=== PATIENT | male | born 1945 | race Caucasian/White ===

== ENCOUNTER 2016-08-13 13:45 | Emergency (ER) | payer OTHER ==
[~2016-08-13] VITALS: Ht 180.3 cm; Wt 100.0 kg
[2016-08-13 14:51] LABS: HEMATOCRIT 42.2 % (38.0-50.0); MCH 31.1 PG (29.0-34.0); MCHC 33.6 G/DL (30.0-36.0); MCV 92.3 FL (86-99); MEAN PLAT.VOLUME 10.1 uM^3 (9.0-12.4); PLATELET COUNT 251 K/uL (156-360); RBC DIS.WIDTH-CV 13.5 % (11.8-14.6); RBC DIS.WIDTH-SD 45.8 % (39-53); RED BLOOD COUNT 4.57 M/uL (4.00-5.50); WHITE BLOOD COUNT 11.6 K/uL (4.1-10.2)
[2016-08-13 15:01] LABS: CHLORIDE 105 mEq/L (99-109); POTASSIUM 3.8 mEq/L (3.7-5.4); SODIUM 142 mEq/L (136-147)
[2016-08-13 15:03] LABS: GLUCOSE 147 mg/dL (70-99)
[2016-08-13 15:04] LABS: ANION GAP 12 MEQ/L (2-14)
[2016-08-13 15:05] LABS: TOTAL BILIRUBIN 0.6 mg/dL (0.0-1.0)
[2016-08-13 15:07] LABS: ALKALINE PHOSPHATASE 84 IU/L (3-129); GFR ESTIMATE (CALCULATED) > 59 mL/min/
[2016-08-13 15:08] LABS: ADD MIUA? YES; BILIRUBIN NEGATIVE; BLOOD MODERATE; COLOR STRAW ((YELLOW)); GLUCOSE (STRIP) 150; KETONES NEGATIVE; LEUKOCYTES NEGATIVE; NITRITE NEGATIVE; PROTEIN (STRIP) NEGATIVE; SPECIFIC GRAVITY 1.013 (1.000-1.030); UROBILINOGEN 0.2 MG/DL (0.2-1.0)
[2016-08-13 15:08] LABS: UREA NITROGEN (BUN) 18 mg/dL (9-23)
[2016-08-13 15:10] LABS: LIPASE 20 U/L (1.0-51.0)
[2016-08-13 15:22] LABS: BACTERIA RARE /HPF; EPITHELIAL CELLS RARE /HPF; HYALINE CASTS 0-5 /LPF; MUCUS TRACE /LPF; RED BLOOD CELLS TNTC /HPF (0-5); WHITE BLOOD CELLS 0-5 /HPF (0-5)
[2016-08-13] MEDS ORDERED: CIPRO500 MG PO (17:02)
[2016-08-13] MEDS ORDERED: ZOFRAN ODT4 MG PO (17:02)
[2016-08-13] MEDS ORDERED: PERCOCET 5/31 TABLET PO (17:02)
[2016-08-13] MEDS ORDERED: FLOMAX0.4 MG PO (17:03)
[2016-08-13 17:17] VITALS: BP 131/80
== END 2016-08-13 17:41 | disposition home or self-care (01) ==
LOC: EME 13:45
PROVIDERS: Nurse Practitioner Family
DX: N13.2 Hydronephrosis with renal and ureteral calculous obstruction (principal); E78.5 Hyperlipidemia, unspecified; I10 Essential (primary) hypertension; Z87.442 Personal history of urinary calculi; Z87.891 Personal history of nicotine dependence
CPT/HCPCS: 74176; 80053; 81003; 83690; 85027; 99281; 99285; J1885; J2270; J2405; J7030

== ENCOUNTER 2017-04-18 07:01 | Emergency (ER) | payer OTHER ==
[~2017-04-18] VITALS: Ht 180.3 cm; Wt 100.0 kg
[~2017-04-18 07:01] MED LIST: CIPRO500 MG PO; FLOMAX0.4 MG PO; PERCOCET 5/31 TABLET PO; ZOFRAN ODT4 MG PO
[2017-04-18 08:58] LABS: HEMATOCRIT 36.1 % (38.0-50.0); MCH 31.1 PG (29.0-34.0); MCHC 33.2 G/DL (30.0-36.0); MCV 93.5 FL (86-99); PLATELET COUNT 208 K/uL (156-360); RBC DIS.WIDTH-CV 13.3 % (11.8-14.6); RBC DIS.WIDTH-SD 45.5 % (39-53); RED BLOOD COUNT 3.86 M/uL (4.00-5.50); WHITE BLOOD COUNT 7.9 K/uL (4.1-10.2)
[2017-04-18 09:11] LABS: CHLORIDE 107 mEq/L (99-109); POTASSIUM 3.3 mEq/L (3.7-5.4); SODIUM 140 mEq/L (136-147)
[2017-04-18 09:12] LABS: MAGNESIUM 2.3 mg/dL (1.3-2.7)
[2017-04-18 09:13] LABS: GLUCOSE 118 mg/dL (70-99)
[2017-04-18 09:17] LABS: CREATININE 1.1 mg/dL (0.6-1.3); GFR ESTIMATE (CALCULATED) > 59 mL/min/ (58.99-99999)
[2017-04-18 09:18] LABS: TROP-I INTERPRETATION NEGATIVE; TROPONIN-I 0.02 ng/mL (0.0-0.30); UREA NITROGEN (BUN) 24 mg/dL (9-23)
[2017-04-18 11:08] LABS: TROP-I INTERPRETATION NEGATIVE; TROPONIN-I 0.02 ng/mL (0.0-0.30)
[2017-04-18 13:58] VITALS: BP 134/80
== END 2017-04-18 13:59 | disposition home or self-care (01) ==
LOC: EME 07:01
PROVIDERS: Emergency Medicine
DX: R07.9 Chest pain, unspecified (principal); E87.6 Hypokalemia; E78.5 Hyperlipidemia, unspecified; I10 Essential (primary) hypertension; I45.10 Unspecified right bundle-branch block; I25.10 Atherosclerotic heart disease of native coronary artery without angina pectoris; E66.9 Obesity, unspecified; Z68.30 Body mass index [BMI] 30.0-30.9, adult; Z95.1 Presence of aortocoronary bypass graft; Z87.891 Personal history of nicotine dependence
CPT/HCPCS: 71046; 80048; 83735; 84484; 85027; 93005; 99281; 99285